=== PATIENT | female | born 1985 | race Caucasian/White ===

== ENCOUNTER → 2022-03-16 | Outpatient (CLI) | payer BC | END | disposition home or self-care (01) | LOC: US 10:03 | PROVIDERS: ATTEND Obstetrics & Gynecology | DX: N83.02 Follicular cyst of left ovary (principal); N83.01 Follicular cyst of right ovary; R93.89 Abnormal findings on diagnostic imaging of other specified body structures; R10.2 Pelvic and perineal pain | CPT/HCPCS: 76830; 76856 ==

== ENCOUNTER → 2022-12-11 | Outpatient (CLI) | payer BC ==
[2022-12-11 13:54] LABS: BASOPHILS % 0.4 % (0.0-2.0); EOSINOPHILS % 3.3 % (0.0-5.0); HEMATOCRIT. 36.7 % (36.0-48.0); HEMOGLOBIN. 12.3 g/dL (12.0-16.0); LYMPHOCYTES % 21.5 % (20.0-50.0); MEAN CORPUSCULAR HEMOGLOBIN 26.4 pg (28.0-32.0); MEAN CORPUSCULAR VOLUME 78.4 fL (81.0-99.0); MEAN PLATELET VOLUME 6.5 fl (7.4-10.4); MONOCYTES % 7.3 % (2.0-8.0); NEUTROPHILS % 67.5 % (40.0-76.0); PLATELET 322 x1000/uL (130-400); RED BLOOD CELL COUNT 4.68 mill/uL (4.2-5.4); RED CELL DISTRIBUTION WIDTH 16.2 % (11.6-14.6)
[2022-12-11 14:01] LABS: CHLORIDE 107 mEq/L (98-107)
[2022-12-11 14:32] LABS: CLARITY URINE CLEAR (CLEAR); COLOR URINE YELLOW (YELLOW); KETONES URINE NEGATIVE (NEGATIVE); LEUKOCYTE ESTERASE URINE NEGATIVE (NEGATIVE); NITRITE URINE NEGATIVE (NEGATIVE); OCCULT BLOOD URINE NEGATIVE (NEGATIVE); PROTEIN URINE NEGATIVE (NEGATIVE); SPECIFIC GRAVITY URINE 1.008 (1.005-1.030); UROBILINOGEN URINE 0.2 E.U./dL (0.2-1.0)
[2022-12-13 07:08] LABS: *CREATININE RANDOM URINE 32.7 mg/dL (Not Estab.); ANTI-CENTROMERE B ANTIBODIES < 0.2 AI (0.0-0.9); ANTI-SCLERODERMA-70 AB <0.2 AI (0.0-0.9); MICROALBUMIN RANDOM URINE 3.9 ug/mL (Not Estab.); RNP ANTIBODY 0.2 AI (0.0-0.9); SJOGRENS ANTI SS-A 7.7 AI (0.0-0.9); SJOGRENS ANTI SS-B < 0.2 AI (0.0-0.9); SMITH ABS < 0.2 AI (0.0-0.9)
[2022-12-13 10:07] LABS: VITAMIN D 1-25 DIHYDROXY 63.8 pg/mL (24.8-81.5)
== END | disposition home or self-care (01) ==
LOC: LAB 13:01
PROVIDERS: ATTEND Internal Medicine
DX: R76.0 Raised antibody titer (principal); E66.9 Obesity, unspecified
CPT/HCPCS: 36415; 80053; 81003; 82043; 82570; 82652; 85025; 85651; 86160; 86235